=== PATIENT | female | born 1985 | race Caucasian/White ===

== ENCOUNTER 2017-09-04 06:27 | Day surgery (SDC) | payer BC, MEDICAID ==
[2017-08-29 10:56] VITALS: BMI 29.7
[2017-09-04] MEDS: cefOXitin IV 2 gm in Dextrose 2 GM/50 ML BAG IVPB ONE ×2 (08:03→08:15)
[2017-09-04] MEDS: Bupivacaine HCl 0.5% PF (10 ml) Inj ONE ×2 (08:03→08:28)
[2017-09-04] MEDS ORDERED: Propofol 10 mg/ml Inj (20 ML) ONE (08:05)
[2017-09-04] MEDS ORDERED: Midazolam 2 MG/2 ML VIAL ONE (08:05)
[2017-09-04] MEDS ORDERED: Methylene Blue 10 mg/mL(10ml) IV ONE (08:43)
[2017-09-04] MEDS ORDERED: Neostigmine Methylsulfate 3mg/3ml Syringe IV ONE (09:02)
[2017-09-04] MEDS: HYDROmorphone 0.5 mg/0.5 ml ISec IVP PRN ×2 (09:25→10:05)
[2017-09-04] MEDS ORDERED: HYDROmorphone 0.5 mg/0.5 ml ISec ONE (09:26)
[2017-09-04] MEDS ORDERED: Lactated Ringer's 1,000 ML IV SCH (09:30)
[2017-09-04] MEDS ORDERED: Oxycodone/Acetaminophen 5/325 mg Tab PO STA (10:55)
[2017-09-04] MEDS ORDERED: Oxycodone/Acetaminophen 5/325 mg Tab ONE (10:59)
[2017-09-04 12:22] VITALS: BP 105/61; PULSE 73; RESP 19; TEMP 98.6; O2SAT 99
--- NOTE | 2017-09-04 19:51 | OP ---
PROCEDURE DATE: 09/04/2017 PREOPERATIVE DIAGNOSES: 1. Ovarian cyst. 2. Pelvic pain. 2. Pelvic adhesions. POSTOPERATIVE DIAGNOSES: 1. Ovarian cyst. 2. Pelvic pain. 3. Pelvic adhesions. 4. Fibroid uterus. PROCEDURES PERFORMED: 1. Laparoscopic myomectomy. 2. Dilation and curettage of the uterus. 3. Chromotubation. FINDINGS: Posterior pedunculated myoma about 6 cm in diameter. The patient also has an anterior 1 cm pedunculated myoma. Both tubes are patent, but the left tube is mildly dilated consistent with a mild hydrosalpinx. 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 The both ovaries are normal. SURGEON: Marlon Francois MD PHOTOGRAPHIC AIDE: Benson Martinez MD ESTIMATED BLOOD LOSS: 1 mL COMPLICATIONS: Nil. DESCRIPTION OF PROCEDURE: After the risks, benefits, and alternatives of the planned procedures including but not limited to infection, hemorrhage, deep vein thrombosis, atelectasis, pneumonia, pulmonary embolism, damage to the bladder, damage to the ureter, renal insufficiency, renal failure, wound infection, wound dehiscence, incisional hernia, keloid formation, damage to the large and small intestines, damage to the inferior vena cava and aorta requiring extensive repair, anesthesia complications, electrolyte imbalance, possibility of , fluid overload, cerebral edema, embolism, and other complications that were discussed but are not listed above have been explained to the patient and all her questions were answered, informed consent was obtained. The patient was taken to the operating room in a stable condition. Under suitable level of general anesthesia, she was prepped and draped in a sterile fashion after having been placed in a dorsal lithotomy position. A Baires catheter was inserted. Examination under anesthesia revealed a posterior uterine mass consistent with a prior history of a posterior pedunculated myoma. A weighted speculum was inserted into the vagina. The anterior lip of the cervix was grasped using a single-tooth tenaculum. An endocervical curettage was performed and scant tissue was obtained. The uterus was sounded to 7 cm. The cervix was dilated to #18 Hanks dilator and endometrial curettage was performed and scant tissue was obtained. A HUMI-catheter was inserted into the cervix and insufflated into place. Through an umbilical vertical incision, a Veress needle was inserted and pneumoperitoneum of 3 liters was created. The Veress needle was removed and replaced by a 5-mm trocar and sleeve. Trocar was removed and replaced by a laparoscope, which confirmed the findings noted above. A 5 mm puncture site was made 3 fingerbreadths above the pubic symphysis through which a 5 mm trocar and sleeve were inserted. Trocar was removed and replaced by Endo Lorena scissors, which was used to resect the anterior subserosal myoma. Chromotubation was then performed. There was free flow of dye through the right fallopian tube. There was also flow of dye delayed through the left fallopian tube. The tube was mildly dilated. At the end of the procedure, peritoneal cavity was irrigated using copious amounts of saline, the saline was evacuated. The suprapubic sleeve was removed under laparoscopic guidance. Abdomen was deflated with carbon dioxide and the umbilical sleeve was removed under laparoscopic guidance. Skin incisions were closed using 4-0 Monocryl. Estimated blood loss for the procedure was 1 mL. Pad, needle, and instrument counts were correct x2. There were no complications. Marlon Francois MD
== END 2017-09-04 11:40 | disposition home or self-care (01) ==
LOC: C.SDS 06:27
PROVIDERS: ATTEND Obstetrics & Gynecology Reproductive Endocrinology
DX: N83.10 Corpus luteum cyst of ovary, unspecified side (principal); N70.11 Chronic salpingitis; A74.81 Chlamydial peritonitis; D25.2 Subserosal leiomyoma of uterus
CPT/HCPCS: 36415; 58120; 58350; 58545; 86850; 86900; 88305; J0694; J1170; J2250; J2704; J2710; J3010

== ENCOUNTER 2018-05-21 10:55 | Emergency (ER) | payer OTHER ==
[2018-05-21 10:56] VITALS: BMI 29.7
[2018-05-21 11:12] VITALS: BP 143/89
[2018-05-21 11:15] VITALS: PULSE 90; RESP 16; TEMP 98; O2SAT 98
[2018-05-21] MEDS ORDERED: Naproxen 550 mg Tab PO STA (11:42)
[2018-05-21] MEDS ORDERED: Bacitracin 500 Units/gm Oint Foilpak UD TOP ONE (11:44)
[2018-05-21] MEDS ORDERED: Naproxen 550 mg Tab PO ONE (11:49)
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
== END 2018-05-21 13:02 | disposition home or self-care (01) ==
LOC: C.ER 10:55
DX: S00.81XA Abrasion of other part of head, initial encounter (principal); S10.91XA Abrasion of unspecified part of neck, initial encounter; S40.212A Abrasion of left shoulder, initial encounter; S40.022A Contusion of left upper arm, initial encounter; S40.021A Contusion of right upper arm, initial encounter; Y08.89XA Assault by other specified means, initial encounter; Y92.9 Unspecified place or not applicable